=== PATIENT | male | born 1950 | race Caucasian/White ===

== ENCOUNTER → 2023-05-31 18:58 | Outpatient (REF) | payer OTHER, SELFPAY | LOC: MRI 3T 18:58 | PROVIDERS: ATTENDING PHYSICIAN Surgery | DX: R97.20 Elevated prostate specific antigen [PSA] (principal) | CPT/HCPCS: 72197; A9575 ==

== ENCOUNTER → 2023-06-08 07:33 | Outpatient (REF) | payer OTHER, SELFPAY | LOC: HWRAD 07:33 | PROVIDERS: ATTENDING PHYSICIAN Nurse Practitioner Family | DX: M54.2 Cervicalgia (principal) | CPT/HCPCS: 72050 ==

== ENCOUNTER 2023-09-24 20:27 | Inpatient (IN) | payer OTHER, SELFPAY ==
[2023-09-24] VITALS (7 sets, daily range): BP systolic 86–138; BP diastolic 49–85; PULSE 74–106; BMI 25.8
[2023-09-24] MEDS: NSS 1000 IV (15:14)
[2023-09-24 15:30] LABS: % Basophils 0.5 % (0-2); % Eosinophils 0.9 % (0-6); % Immature Granulocytes 0.5 % (0-0.5); % Lymphocytes 15.7 % (20.5-51.1); % Monocytes 14.5 % (1.7-9.3); % Neutrophils 67.9 % (42.2-75.2); Absolute Basophils 0.1 10^3/uL (0-0.2); Absolute Eosinophils 0.1 10^3/uL (0-0.7); Absolute Immature Granulocytes 0.1 10^3/uL (0-0.05); Absolute Lymphocytes 1.7 10^3/uL (1.2-3.4); Absolute Monocytes 1.6 10^3/uL (0.1-0.6); Absolute Neutrophils 7.5 10^3/uL (1.4-6.5); Hematocrit 40.7 % (39.0-52.0); Hemoglobin 14.6 g/dL (13.0-18.0); Mean Corp Hgb Conc. 35.9 g/dL (33.0-37.0); Mean Corpuscular Hgb 31.7 pg (27.0-31.0); Mean Corpuscular Volume 88.3 fL (80.0-94.0); Mean Platelet Volume 10.1 fL (7.4-10.4); Nucleated Red Blood Cells % 0 % (-); Platelet Count 230 10^3/uL (130-400); Red Blood Cell Count 4.61 10^6/uL (4.70-6.10); Red Cell Dist. Width 12.2 % (11.5-14.5)
[2023-09-24 15:41] LABS: Lactic Acid 1.2 mmol/L (0.7-2.0)
[2023-09-24 15:42] LABS: ALT (SGPT) 26 U/L (0-50); AST (SGOT) 33 U/L (17-59); Albumin 3.9 g/dl (3.5-5.0); Alkaline Phosphatase 49 U/L (38-126); Blood Urea Nitrogen 25 mg/dl (9-20); Calcium 9.1 mg/dl (8.4-10.2); Carbon Dioxide 26 mmol/L (22-30); Chloride 99 mmol/L (98-107); Glucose 89 mg/dl (70-99); Potassium 4.4 mmol/L (3.5-5.1); Sodium 136 mmol/L (135-145); Total Bilirubin 0.8 mg/dl (0.2-1.3); Total Protein 6.3 g/dl (6.3-8.2); eGFR 58.37
[2023-09-24 17:14] LABS: Urine Albumin 2+ (Neg - Trace); Urine Bilirubin 1+ (Negative); Urine Character Very Cloudy (Clear); Urine Color Amber; Urine Glucose Negative (Negative); Urine Ketone Trace (Negative); Urine Leukocyte 2+ (Negative); Urine Nitrite Positive (Negative); Urine Occult Blood 4+ (Negative); Urine Urobilinogen 1+ (Neg - 1+); Urine pH 6.5 (5.0-9.0)
[2023-09-24 17:35] LABS: Urine Squamous Cell 0-2 /LPF (Few)
[2023-09-24 17:36] LABS: Urine Bacteria Few (Negative); Urine Red Blood Cell 90-100 /HPF (0-2)
--- NOTE | 2023-09-24 19:13 | ED.GENMED ---
History of Present Illness
General
Chief Complaint: Blood Pressure Problem
Source: patient
Exam Limitations: none
Time Seen by Provider: 09/24/23 14:23
Nursing documentation reviewed up to this point in time: agreed with
Travel History
Have you had any contact with someone who has COVID-19?: No
Do you have any symptoms of coronavirus? Fever > 100 degrees, chills, cough, shortness of breath, sore throat, loss of taste or smell, muscle aches, or headache?: No
History of Present Illness
History of Present Illness:
Patient status post prostate ablation procedure at [facility] 5 days ago, discharged home yesterday secondary to postprocedural complication, i.e. confusion, presents to ED secondary to sudden onset of dizziness and weakness, shortly
after waking up this morning. When his blood pressure was checked by his , his systolic blood pressure was in 70s. Spoke with on-call urologist, who recommended patient come to ED for an evaluation. Patient denies fever or chills. Denies
nausea or vomiting. Denies diarrhea. Denies coughing. Denies headache. Denies rash. Patient has an indwelling Goldberg catheter from last week's procedure.
Past History
Past History
ED Past Medical History: HTN
ED Past Surgical History: Other (Hernia repair)
Social History
Tobacco: Non-smoker
Alcohol: None
Drug: None
Review of Systems
Review of Systems
Allergies reviewed?: Yes
All Other Systems: ROS reviewed and negative except as documented in HPI and ROS
Constitutional: Reports no symptoms
EENT: Reports no symptoms
Respiratory: Reports no symptoms
Cardiac: Reports no symptoms
ABD/GI: Reports no symptoms
: Reports no symptoms
Musculoskeletal: Reports no symptoms
Skin: Reports no symptoms
Neurological: Reports dizzy and weakness
Phy Exam
Physical Exam
Physical Exam:
Physical Exam
General: mild distress, not acutely ill. afebrile. hypotensive
Head: nc/at. eomi
Neck: supple. no meningeal signs.
Heart: s1/s2 regular rate and rhythm, no murmur. equal radial pulses.
Lungs: no acute respiratory distress. clear bilaterally
Abdomen: normal bowel sounds. not tender.
Neuro: alert and oriented. no focal neurological deficits
Skin: no rash
Psychiatric: well kept. interactive and cooperative
Extremities: no edema. no calf tenderness.
Course
Orders/Labs/Results
Orders:
Orders
09/24/23 Breakfast
Cholesterol Lowering
At Your Request: Full Participation
Cholesterol Lowering: Sodium, 2 Gram
09/24/23 14:48
0.9% Sodium Chloride 1000 ml [Nss] 1,000 ml IV BOLUS
09/24/23 15:07
Complete Blood Count/With Diff Urgent
Comprehensive Metabolic Panel Urgent
Lactic Acid Q4H
Comment: CANCEL 2nd LACTIC ACID IF 1st LACTIC ACID IS LESS THAN 2
Magnesium Urgent
Blood Culture Q30M
HUSSEIN Source: Blood/Venous
Specimen Description:
Blood Culture Q30M
HUSSEIN Source: Blood/Venous
Specimen Description:
09/24/23 16:57
Urinalysis Reflex To Culture Urgent
Date Specimen was Collected: 09/24/23
Time Specimen was Collected: 14:53
Urine Microscopic Reflex Cult Urgent
Urine Culture Urgent
HUSSEIN Source: U
Specimen Description:
Date Specimen was Collected: 09/24/23
Time Specimen was Collected: 14:53
09/24/23 19:20
CefTRIAXone [Rocephin] 1,000 mg IV NOW STA
09/24/23 20:00
0.9% Sodium Chloride 500 ml [Nss] 500 ml IV 100 mls/hr
09/24/23 20:01
Admit/Transfer Patient As Directed
Co-Sign Provider:
Level of Care: Inpatient admission
Assign to:: Telemetry
Physician / Group: [email or web address]
Diagnosis: sepsis, complicated UTI,POD 4/5 post prostate ablation
Reason for Telemetry: Other
Other Reason for Telemetry: sepsis, complicated UTI,POD 4/5 post prostate ablation
Date to Stop Telemetry: 09/26/23
Time to Stop Telemetry: 11:00
Reason for Hospitalization: sepsis, complicated UTI,POD 4/5 post prostate ablation
Expected length of stay greater than two midnights?: Yes
ELOS- Estimated Length of Stay in days: 3
I certify the patient meets the requirements for IP care: Yes
09/24/23 20:02
Code Status As Directed
Resuscitation Status: Full Code
09/24/23 20:06
Lactate Level [Lactic Acid] Routine
09/24/23 22:00
Lactated Ringers [Lr] 1,000 ml IV 100 mls/hr
Latanoprost [Xalatan Ophthalmic Solution] 1 drop BOTH EYES HS
09/24/23 22:00
Activity As Directed
Activity Level: With Assistance
Intake/ Output As Directed
Frequency: Per unit guidelines
Pneumatic Compression Sleeves As Directed
Type: Knee high
Vital Signs As Directed
Frequency: Per unit guidelines
DX Deep Vein Thrombosis Video Routine
09/25/23 06:35
Complete Blood Count/No Diff IN AM
Comprehensive Metabolic Panel IN AM
09/25/23 08:00
Docusate Sodium [Colace] 100 mg PO BID
Rosuvastatin Calcium [Crestor] 10 mg PO DAILY
Venlafaxine Extended Release [Effexor Xr] 150 mg PO DAILY
09/25/23 20:00
CefTRIAXone [Rocephin] 1,000 mg IV Q24H
09/26/23 11:00
DC Protocol for Telemetry ONCE
Abnormal Lab Results
09/24/23 09/24/23 09/24/23
15:07 16:57 20:06
WBC 11.0 H 10^3/uL
(4.8-10.8)
RBC 4.61 L 10^6/uL
(4.70-6.10)
MCH 31.7 H pg
(27.0-31.0)
Abs Immat Gran (auto) 0.1 H 10^3/uL
(0-0.05)
Absolute Neuts (auto) 7.5 H 10^3/uL
(1.4-6.5)
Absolute Monos (auto) 1.6 H 10^3/uL
(0.1-0.6)
Lymphocytes % 15.7 L %
(20.5-51.1)
Monocytes % 14.5 H %
(1.7-9.3)
BUN 25 H mg/dl
(9-20)
Lactic Acid 0.6 L mmol/L
(0.7-2.0)
Urine Ketones Trace A
(Negative)
Ur Occult Blood Reflex 4+ A
(Negative)
Urine Nitrite (Reflex) Positive A
(Negative)
Urine Bilirubin 1+ A
(Negative)
Leukocyte Esterase Rfl 2+ A
(Negative)
Urine RBC 90-100 A /HPF
(0-2)
Urine WBC (Reflex) 11-15 A /HPF
(0-5)
Urine Bacteria (Reflex) Few A
(Negative)
Urine Albumin (Reflex) 2+ A
(Neg - Trace)
09/24/23 15:07
09/24/23 15:07
Vital Signs
Initial and Last Documented VS:
Initial Vital Signs
Temp Pulse Resp BP Pulse Ox
97.7 F 102 18 86/49 95
09/24/23 13:41 09/24/23 13:41 09/24/23 13:41 09/24/23 13:41 09/24/23 13:41
Last Documented Vital Signs
Temp Pulse Resp BP Pulse Ox
98.5 F 94 14 144/79 97
09/25/23 19:59 09/25/23 19:59 09/25/23 19:59 09/25/23 19:59 09/25/23 19:59
MDM/Problems Addressed
MDM/Problems Addressed:
Patient with profound hypotension, requiring multiple IV fluid boluses in ED. Unfortunately, when standing up after hydration, patient once again became hypotensive. History and exam concerning for severe dehydration versus sepsis/bacteremia from
recent procedure. Urinalysis noted -will start empiric antibiotics.
Urine culture and blood culture pending.
*Critical Care Note
Total Time (30-74mins, 75-104mins- exclusive of procedures): Not Applicable
ED Attending Note
-
Portions of this chart may have been created with voice recognition software.� Occasional wrong word or��sound alike� substitutions may have occurred due to the inherent limitations of voice recognition software.
Discharge Plan
Departure
Patient Disposition: Admit
Date of Disposition: 09/24/23
Time of Disposition: 19:17
Admit to: Telemetry
Presentation/result/management discussed w/ accepting MD/DO: Hospitalist
Discharge Problem:
Hypotension, Acute UTI
Interventions
Interventions:
*Risk Screen - Suicide Last Done: 09/24/23 13:45
*General Assessment Last Done: 09/24/23 13:45
*Neglect/Abuse Screening Last Done: 09/24/23 13:45
ED- Fall Risk Assessment Last Done: 09/24/23 18:55
*ED COVID-19 Vaccine History Last Done: 09/24/23 18:55
*Nursing Disposition Last Done: 09/24/23 22:00
ED- Cardiac Assessment Last Done: 09/24/23 18:55
ED- Neurological Assessment Last Done: 09/24/23 18:55
ED- Pulmonary Assessment Last Done: 09/24/23 18:55
Discharge Date and Time
Discharge Date/Time: 09/24/23 22:00
--- NOTE | 2023-09-24 19:55 | HPS.HSE ---
Family Physician
-
Family Physician: DAVON Mckinnon
Chief Complaint
-
dizziness and weakness
History of Present Illness
72M HX HTN, POD 4/5 post prostate ablation procedure at [facility] , DC'd home yesterday seen at ER for evalaution of dizziness and weakness
Current dizziness and weakness
-abrupt onset since when he woke up this morming
- associate with weakness
- checked BP and noted SBP 70s
- P Urologist suggest to eval at ER
- wearing indwelling Goldberg catheter since the procedure
- BP was 85/50at ER - 110/65 s/p NS 500 cc bolus
- IV CFTX per ER for sepsis
ROS
Denies diarrhea. Denies coughing. Denies headache. Denies rash
Medical History
Past Medical History
Past Medical History: Reports HTN, Hypercholesterolemia and Psychiatric
Past Surgical History: Reports Urological (POD 4/5 post prostate ablation procedure at [facility])
Social History
Tobacco: Non-smoker
Alcohol: None
Drug: None
Family History
Family History: Not pertinent
Allergies / Home Medications
Allergies reflects when Allergies were last updated in [employer].
Home Medications with original date entered in [employer]
Allergy/Medication List:
Allergies
Allergy/AdvReac Type Severity Reaction Status Date / Time
No Known Allergies Allergy Verified 09/24/23 13:41
Pending Rx reconciliation
Review of Systems
-
Constitutional: Reports Fatigue
EENT: Reports No Symptoms
Respiratory: Reports No Symptoms
Cardiac: Reports No Symptoms
Abdomen/GI: Reports No Symptoms
: Reports No Symptoms
Musculoskeletal: Reports No Symptoms
Skin: Reports No Symptoms
Neurological: Reports Dizzy and Weakness
Endocrine: Reports No Symptoms
Hematologic/Lymphatic: Reports No Symptoms
Psych: Reports No Symptoms
Physical Exam
Vital Signs
Vital Signs
Temp Pulse Resp BP Pulse Ox
97.7 F 102 18 109/66 95
09/24/23 13:41 09/24/23 13:41 09/24/23 13:41 09/24/23 18:58 09/24/23 13:41
Physical Exam
General: Well Nourished, No Apparent Distress and Comfortable
HEENT: NormoCephalic
Respiratory: Clear; No Wheezes, Rales or Rhonchi
Cardiac: S1/S2, Tachycardia and Other (hypotension)
GI: Soft, Non Tender, Non Distended and Normal Bowel Sounds
Genito-urinary: Goldberg
Skin: Warm and Dry
Neuro: AO x 3
Psych: Calm
Laboratory Results
-
09/24/23 15:07
09/24/23 15:07
Laboratory Results
Lactic Acid Cancelled 09/24/23 19:00
Total Bilirubin 0.8 mg/dl (0.2-1.3) 09/24/23 15:07
AST 33 U/L (17-59) 09/24/23 15:07
ALT 26 U/L (0-50) 09/24/23 15:07
Alkaline Phosphatase 49 U/L (38-126) 09/24/23 15:07
Data Reviewed
-
Lab Data: Labs Reviewed by me
Old Records: Reviewed
Impression/Plan
-
Reviewed VS: afebrile 85/50 --> 110/65 tachycardia 100
Data
WCC 11
hgb 14.6
Cr 1.3 - bl is 1.0
eGFR 58 suspect CKD2
UA: POS Nitrites , RBC 90-100, WCC 11-15, 2 +LE
UCx sent
BCx sent
NO PRIOR hospitalist admission:
ASSESSMENT & PLAN
Pending Rx reconciliation
Sepsis due to presumed UTI , presumed complicated
Asso. hypotension and presyncopal postural lightheadedness
- check LA
- Switch to LR IV
- cont. IV CFTX
- held Lisinopril/HCTZ
- f/u UCx, BCx
POD 4/5 post prostate ablation procedure at [facility]
- cont indwelling F cath
Mild PAUL
Hypotension
HX essential HTN on ACEI/HCTZ
- Held Lisinopril/HCTZ
- Trend Cr and BP
HLD
-On Rosuvastatin ?
Depression
- stable
- on Lexapro ?
DVT Px: SCD
Code: Fc
IP TLM
[2023-09-24] MEDS: NSS 500 IV (20:13)
[2023-09-24] MEDS: ROCEPHIN 1000 MG IV (20:17)
[2023-09-24 20:45] LABS: Lactic Acid 0.6 mmol/L (0.7-2.0)
[2023-09-24] MEDS: XALATAN OPHTHALMIC SOLUTION 1 DROP BOTH EYES (22:30)
--- NOTE | 2023-09-24 22:30 | TRANSFER ---
Received pt from ED via stretcher. Stretcher placed next to bed, pt able to stand and pivot into bed. AAOx2-3, unable to state president. Forgetful, bed alarm placed. at bedside. Assessed and oriented to room. Indwelling doan catheter present,
urine brown/red. Pt stated, 'It has looked like that since it has been placed'. manager monitoring placed. Pt verbalized understanding of call kaur. Call kaur within close reach. Will continue to monitor.
[2023-09-24] MEDS: LR 1000 IV (23:29)
[2023-09-25] VITALS (9 sets, daily range): BP systolic 94–153; BP diastolic 63–90; PULSE 91; O2SAT 98
--- NOTE | 2023-09-25 06:06 | W.PN.HOSP.TC ---
Today's Communication/Plan
-
cont abx
follow cultures
PT/OT
Urology Eval
Assessment / Plan
Assessment / Plan
Physical Exam
General: Well Nourished, No Apparent Distress and Comfortable
HEENT: NormoCephalic
Respiratory: Clear; No Wheezes, Rales or Rhonchi
Cardiac: S1/S2 no murmurs rubs crackles
GI: Soft, Non Tender, Non Distended and Normal Bowel Sounds
Genito-urinary: Goldberg, no CVA/flank tenderness
Skin: Warm and Dry
Neuro: AO x 3 though some confusion noted
Psych: Calm
Sepsis due to presumed UTI , presumed complicated
Asso. hypotension and presyncopal postural lightheadedness
- lactic acid wnl
- LR IV support
- cont. IV CFTX
- held Lisinopril/HCTZ
- f/u UCx, BCx
Acute Metabolic Encephalopathy
-mild confusion noted
-will cont to monitor
POD 4/5 post prostate ablation procedure at [facility]
- cont indwelling F cath
-Urology eval appreciated
Mild PAUL
Hypotension
HX essential HTN on ACEI/HCTZ
- Hold Lisinopril/HCTZ
- Trend Cr and BP
-IVF support as above
HLD
-cont Rosuvastatin
Depression
- cont Venlafaxine
DVT Px: SCD
Code: Fc
IP TLM
PT/OT appreciated home health
Discussed with patient and his
I spent a total of 50 minutes with the patient or on the floor. More than 50% of this time involved counseling and coordination of care.
Anticipated Discharge: 24 - 48 hours
Subjective/Interval History
-
Date of Service: September 25, 2023
Seen and examined at bedside in no acute distress sitting up comfortably in bed. mild confusion noted (confused this facility with [facility] and reported going home yesterday with a walker when it was approx 5 days ago when patient was discharged
from [facility] per ). Reports ongoing dysuria. Denies current dizziness but has significant concerns for return of dizziness when standing/ambulating.
Objective Data
-
Labs:
Laboratory Results
09/25/23
06:00
WBC Pending
Hgb Pending
Hct Pending
Plt Count Pending
Sodium Pending
Potassium Pending
Chloride Pending
Carbon Dioxide Pending
BUN Pending
Creatinine Pending
Glucose Pending
Calcium Pending
Total Bilirubin Pending
AST Pending
ALT Pending
Alkaline Phosphatase Pending
Vital Signs:
Vital Signs
Temp Pulse Resp BP Pulse Ox
97.1 F 89 16 128/74 96
09/25/23 03:10 09/25/23 03:10 09/25/23 03:10 09/25/23 03:10 09/25/23 03:10
I&O
09/23/23 09/24/23 09/25/23
06:59 06:59 06:59
Intake Total 900 / 900
Output Total 900 / 900
Balance 0 / 0
[2023-09-25 06:54] LABS: Hematocrit 37.6 % (39.0-52.0); Hemoglobin 13.7 g/dL (13.0-18.0); Mean Corp Hgb Conc. 36.4 g/dL (33.0-37.0); Mean Corpuscular Hgb 32.2 pg (27.0-31.0); Mean Corpuscular Volume 88.3 fL (80.0-94.0); Mean Platelet Volume 9.9 fL (7.4-10.4); Platelet Count 189 10^3/uL (130-400); Red Blood Cell Count 4.26 10^6/uL (4.70-6.10); Red Cell Dist. Width 11.9 % (11.5-14.5); White Blood Cell Count 7.7 10^3/uL (4.8-10.8)
[2023-09-25] MEDS: COLACE 100 MG PO ×2 (07:18→20:29)
[2023-09-25] MEDS: EFFEXOR XR 150 MG PO (07:18)
[2023-09-25] MEDS: CRESTOR 10 MG PO (07:18)
[2023-09-25 07:24] LABS: ALT (SGPT) 24 U/L (0-50); AST (SGOT) 26 U/L (17-59); Albumin 3.3 g/dl (3.5-5.0); Alkaline Phosphatase 61 U/L (38-126); Blood Urea Nitrogen 18 mg/dl (9-20); Carbon Dioxide 26 mmol/L (22-30); Chloride 104 mmol/L (98-107); Estimated Creatinine Clearance 77 ml/min; Glucose 95 mg/dl (70-99); Potassium 4.3 mmol/L (3.5-5.1); Sodium 136 mmol/L (135-145); Total Bilirubin 0.8 mg/dl (0.2-1.3); Total Protein 5.4 g/dl (6.3-8.2); eGFR > 60.00
[2023-09-25] MEDS: LR 1000 IV ×2 (08:48→18:43)
--- NOTE | 2023-09-25 10:31 | CONS.URO ---
Consultation
-
Date/Time Consultation Performed: 09/25/2023 1145
Performing Provider: Jaron
Medical History
History of Present Illness
72 yo male status post prostate 'aqua-ablation' procedure by [facility] ~ 5 days ago, discharged home yesterday after postprocedural complication [confusion]; was NOT on antibiotics at discharge. He experienced
dizziness and weakness, shortly after waking up this morning; his blood pressure was checked by his -- systolic blood pressure was in 70s. poke with on-call PCP, who recommended patient be brought to ED for an evaluation.
Now admitted to hospitalists' service with 'urosepsis'
Past Medical History
Past Medical History: HTN and Other (ROSE)
Past Surgical History: Urological (Aqua-ABLATIOn by Tabitha Da Silva DO at [facility] on 09/19/2023)
Social History
Personal:
Living: With Family
Family History
Family History: Reviewed & Not Pertinent
Allergies/Home Medications
Allergies
Allergy/AdvReac Type Severity Reaction Status Date / Time
No Known Allergies Allergy Verified 09/24/23 13:41
Home Medications
�Medication �Instructions �Recorded �Confirmed �Type
alfuzosin 10 mg tablet,extended 10 mg PO DAILY Urinary Issue 09/24/23 09/24/23 History
release 24 hr
docusate sodium 100 mg capsule 100 mg PO BID Constipation 09/24/23 09/24/23 History
latanoprost 0.005 % eye drops 1 drp BOTH EYES HS Eye Condition 09/24/23 09/24/23 History
lisinopril 10 1 tab PO DAILY Blood Pressure 09/24/23 09/24/23 History
mg-hydrochlorothiazide 12.5 mg
tablet
omeprazole 40 mg capsule,delayed 40 mg PO DAILY Gastrointestinal 09/24/23 09/24/23 History
release Issue
rosuvastatin 10 mg tablet 10 mg PO DAILY High Cholesterol 09/24/23 09/24/23 History
venlafaxine 150 mg tablet,extended 150 mg PO DAILY Depression 09/24/23 09/24/23 History
release 24 hr
Physical Exam
Vital Signs
Vital Signs
Temp Pulse Resp BP Pulse Ox
98.1 F 86 16 131/78 96
09/25/23 07:26 09/25/23 07:26 09/25/23 07:26 09/25/23 07:26 09/25/23 07:26
Lab / Testing Results
Laboratory Results
09/25/23 06:35
09/25/23 06:35
Physical Exam
adult male who is awake an conversant but who appears frail, weak and somewhat confused
Genito-urinary: Goldberg Catheter (katherine urine)
Assessment / Plan
-
AMS of uncertain etiology s/p prostate aqua-ablation
I d/w via phone that records from [facility] and Dr Da Silva are essential to understand what has happened since surgery to determine ongoing pathology
Rec: keep Goldberg
Data Reviewed
-
MRI: Image personally visualized and interpreted (pelvic MRI from 05/2023: 89 cc prostate; PI-RADS 1)
Lab Data: Labs Reviewed
--- NOTE | 2023-09-25 13:32 | CM ---
Reviewed chart, placed a call to patient's who answered and stated that she could talk. Patient's stated that patient lives with her in a single, two story home with three steps to enter. He was recently at [facility] for a prostate
ablation and went home. 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
drive. Patient's stated that this past week, she has been assisting with the bathing and dressing. She got patient a shower chair and he got a walker from the hospital and his purchased a cane for him to use in the powder room.
Patient's stated that patient is normally forgetful, but not as confused as he has been this past week.
Patient has a prescription plan and uses the [facility] in [place] for all of his medications.
His PCP is, Kilo Barrios.
Patient's is unable to determine whether she will be able to take patient home and care for him. She was advised that medical staff will make indications for discharge and CM will help her to navigate the best plan.
Plan: Case management will continue to follow and assist with discharge planning. SNF vrs Home with VN.
[2023-09-25] MEDS: FLUSH (NSS) 1 FLUSH IV ×2 (20:29)
[2023-09-25] MEDS: XALATAN OPHTHALMIC SOLUTION 1 DROP BOTH EYES (20:30)
[2023-09-25] MEDS: STERILE WATER FOR INJECTION 10 ML IV (20:30)
[2023-09-25] MEDS: ROCEPHIN 1000 MG IV (20:30)
[2023-09-26] VITALS (7 sets, daily range): BP systolic 117–152; BP diastolic 72–96; PULSE 77–107; O2SAT 97
[2023-09-26] MEDS: LR 1000 IV ×2 (05:09→07:40)
[2023-09-26 06:18] LABS: Hematocrit 39.7 % (39.0-52.0); Mean Corp Hgb Conc. 35.3 g/dL (33.0-37.0); Mean Corpuscular Hgb 31.6 pg (27.0-31.0); Mean Corpuscular Volume 89.6 fL (80.0-94.0); Mean Platelet Volume 9.7 fL (7.4-10.4); Platelet Count 211 10^3/uL (130-400); Red Blood Cell Count 4.43 10^6/uL (4.70-6.10); Red Cell Dist. Width 11.8 % (11.5-14.5); White Blood Cell Count 8.2 10^3/uL (4.8-10.8)
[2023-09-26 06:44] LABS: Blood Urea Nitrogen 14 mg/dl (9-20); Calcium 9.1 mg/dl (8.4-10.2); Carbon Dioxide 30 mmol/L (22-30); Chloride 104 mmol/L (98-107); Estimated Creatinine Clearance 77 ml/min; Glucose 97 mg/dl (70-99); Magnesium 1.9 mg/dl (1.6-2.3); Phosphorus 3.2 mg/dl (2.5-4.5); Potassium 4.5 mmol/L (3.5-5.1); Sodium 140 mmol/L (135-145); eGFR > 60.00
[2023-09-26] MEDS: COLACE 100 MG PO ×2 (07:36→21:32)
[2023-09-26] MEDS: EFFEXOR XR 150 MG PO (07:37)
[2023-09-26] MEDS: CRESTOR 10 MG PO (07:37)
--- NOTE | 2023-09-26 07:53 | W.PN.HOSP.TC ---
Today's Communication/Plan
-
resume lisinopril reduced dose
transition IV abx to oral
Possible discharge tomorrow home with home health
Assessment / Plan
Assessment / Plan
Physical Exam
General: Well Nourished, No Apparent Distress and Comfortable
HEENT: NormoCephalic
Respiratory: Clear; No Wheezes, Rales or Rhonchi
Cardiac: S1/S2 no murmurs rubs crackles
GI: Soft, Non Tender, Non Distended and Normal Bowel Sounds
Genito-urinary: Goldberg, no CVA/flank tenderness
Skin: Warm and Dry
Neuro: AO x 3 though some confusion noted
Psych: Calm
Sepsis due to presumed UTI , presumed complicated
Asso. hypotension and presyncopal postural lightheadedness
- lactic acid wnl
- LR IV completed
- IV CFTX transitioned to Keflex
- held Lisinopril/HCTZ, lisinopril resumed reduced dose
- UCx, no growth
- BCx NGTD
Acute Metabolic Encephalopathy
-mild confusion noted
-Appears to be resolving/resolved
Post prostate ablation procedure at [facility]
- cont indwelling F cath
-Urology eval appreciated
Mild PAUL resolved
Hypotension resolved
HX essential HTN on ACEI/HCTZ
- Hold Lisinopril/HCTZ
- Trend Cr and BP
-IVF completed
-lisinopril resumed at reduced dose
HLD
-cont Rosuvastatin
Depression
- cont Venlafaxine
DVT Px: SCD
Code: Fc
IP TLM
PT/OT appreciated home health
Discussed with patient and his
I spent a total of 50 minutes with the patient or on the floor. More than 50% of this time involved counseling and coordination of care.
Anticipated Discharge: Within 24 hours
Subjective/Interval History
-
Date of Service: September 26, 2023
More alert today. Confusion appears resolved. Blood pressure increasing. Denies new acute issues at this time. Overall reports feeling well
Objective Data
-
Labs:
Laboratory Results
09/26/23
06:04
WBC 8.2
Hgb 14.0
Hct 39.7
Plt Count 211
Sodium 140
Potassium 4.5
Chloride 104
Carbon Dioxide 30
BUN 14
Creatinine 0.9
Glucose 97
Calcium 9.1
Vital Signs:
Vital Signs
Temp Pulse Resp BP Pulse Ox
98.5 F 75 17 152/88 99
09/26/23 07:00 09/26/23 07:00 09/26/23 07:00 09/26/23 07:00 09/26/23 07:00
I&O
09/25/23 09/26/23 09/27/23
06:59 06:59 06:59
Intake Total 900 / 900 0 / 1920
Output Total 900 / 900 3625 / 3625
Balance 0 / 0 -1705 / -1705
[2023-09-26] MEDS: KEFLEX 500 MG PO ×2 (10:38→21:32)
[2023-09-26] MEDS: ZESTRIL 5 MG PO (10:52)
--- NOTE | 2023-09-26 15:16 | W.PN.URO.CBU ---
Today's Communication / Plan
-
keep Goldberg
pt to f/u with his urologist, [Tabitha Da Silva, ] for Goldberg management
will sign off
Assessment / Plan
-
no growth on urine cx eliminates urosepsis from diagnostic differential for AMS + HD instability
Diagnosis
-
Date of Service: September 26, 2023
-
Patient Diagnosis:
AMS of uncertain etiology s/p prostate aqua-ablation
Subjective
-
comfortable with Goldberg
Objective
-
Vital Signs
Temp Pulse Resp BP Pulse Ox
98.0 F 94 17 124/72 98
09/26/23 14:37 09/26/23 14:37 09/26/23 14:37 09/26/23 14:37 09/26/23 14:37
Intake and Output
09/25/23 09/26/23 09/27/23
06:59 06:59 06:59
Intake Total 900 / 900 1920 / 1920
Output Total 900 / 900 3625 / 3625
Balance 0 / 0 -1705 / -1705
Intake:
Oral fluids 720 / 720
IV fluids (Total) 900 / 900 1200 / 1200
Output:
Urine, Goldberg 900 / 900 3625 / 3625
Laboratory Results
09/26/23 06:04
09/26/23 06:04
urine: no growth
Physical Exam
-
General - well developed, well nourished, no acute distress
Chest - clear bilaterally
Abdomen - soft, non-tender, positive bowel sounds, no CVAT, no incisional pain or distention
Genitalia - normal
Rectal - normal
Skin - warm & dry with no rash
Neuro - AOx3, no motor deficits
Extremities - no clubbing, no cyanosis, no edema
Incision - clean, dry
Dressing - clean, dry, intact
[2023-09-26] MEDS: XALATAN OPHTHALMIC SOLUTION 1 DROP BOTH EYES (21:32)
[2023-09-27 06:35] LABS: Hematocrit 40.9 % (39.0-52.0); Hemoglobin 14.4 g/dL (13.0-18.0); Mean Corp Hgb Conc. 35.2 g/dL (33.0-37.0); Mean Corpuscular Hgb 31.5 pg (27.0-31.0); Mean Corpuscular Volume 89.5 fL (80.0-94.0); Mean Platelet Volume 9.6 fL (7.4-10.4); Platelet Count 235 10^3/uL (130-400); Red Blood Cell Count 4.57 10^6/uL (4.70-6.10); Red Cell Dist. Width 11.8 % (11.5-14.5); White Blood Cell Count 8.4 10^3/uL (4.8-10.8)
--- NOTE | 2023-09-27 06:42 | W.PN.URO.CBU ---
Today's Communication / Plan
-
keep Goldberg
pt to f/u with his urologist at [facility]
signing off
Assessment / Plan
-
no growth on urine cx eliminates urosepsis from diagnostic differential for AMS + HD instability
Diagnosis
-
Date of Service: September 27, 2023
-
Patient Diagnosis:
AMS of uncertain etiology s/p prostate aqua-ablation
Subjective
-
asleep
Objective
-
Vital Signs
Temp Pulse Resp BP Pulse Ox
98 F 81 17 143/88 97
09/26/23 23:25 09/26/23 23:25 09/26/23 23:25 09/26/23 23:25 09/26/23 23:25
Intake and Output
09/25/23 09/26/23 09/27/23
06:59 06:59 06:59
Intake Total 900 / 900 1920 / 1920 960 / 960
Output Total 900 / 900 3625 / 3625 3650 / 3650
Balance 0 / 0 -1705 / -1705 -2690 / -2690
Intake:
Oral fluids 720 / 720 960 / 960
IV fluids (Total) 900 / 900 1200 / 1200
Output:
Urine, Ogldberg 900 / 900 3625 / 3625 3650 / 3650
Laboratory Results
09/27/23 06:17
Physical Exam
-
General - asleep
Genitalia - katherine urine via Goldberg
[2023-09-27 06:55] LABS: Blood Urea Nitrogen 12 mg/dl (9-20); Calcium 9.3 mg/dl (8.4-10.2); Carbon Dioxide 27 mmol/L (22-30); Chloride 102 mmol/L (98-107); Estimated Creatinine Clearance 77 ml/min; Glucose 99 mg/dl (70-99); Phosphorus 3.2 mg/dl (2.5-4.5); Potassium 4.7 mmol/L (3.5-5.1); Sodium 136 mmol/L (135-145); eGFR > 60.00
[2023-09-27 07:56] VITALS: BP 158/94
[2023-09-27] MEDS: EFFEXOR XR 150 MG PO (08:10)
[2023-09-27] MEDS: COLACE 100 MG PO (08:10)
[2023-09-27] MEDS: CRESTOR 10 MG PO (08:10)
[2023-09-27] MEDS: ZESTRIL 5 MG PO ×2 (08:10→11:19)
[2023-09-27] MEDS: KEFLEX 500 MG PO (08:10)
[2023-09-27 08:51] VITALS: BP 152/94; PULSE 84; O2SAT 98
--- NOTE | 2023-09-27 08:54 | W.PN.HOSP.TC ---
Addendum entered and electronically signed by Meagan Amaya MD 09/28/23 08:25:
sepsis ruled out
Original Note:
Today's Communication/Plan
-
discharge
Assessment / Plan
Assessment / Plan
Physical Exam
General: Well Nourished, No Apparent Distress and Comfortable
HEENT: NormoCephalic
Respiratory: Clear; No Wheezes, Rales or Rhonchi
Cardiac: S1/S2 no murmurs rubs crackles
GI: Soft, Non Tender, Non Distended and Normal Bowel Sounds
Genito-urinary: Goldberg, no CVA/flank tenderness
Skin: Warm and Dry
Neuro: AO x 3 conversant coherent
Psych: Calm
Sepsis due to presumed UTI , presumed complicated
Asso. hypotension and presyncopal postural lightheadedness
- lactic acid wnl
- LR IV completed
- IV CFTX transitioned to Keflex plan for 5 more days following discharge
- held Lisinopril/HCTZ, lisinopril resumed reduced dose
- UCx, no growth
- BCx NGTD
Acute Metabolic Encephalopathy
-mild confusion noted
-Appears to be resolving/resolved
Post prostate ablation procedure at [facility]
- cont indwelling F cath
-Urology eval appreciated
Mild PAUL resolved
Hypotension resolved
HX essential HTN on ACEI/HCTZ
- Hold Lisinopril/HCTZ
- Trend Cr and BP
-IVF completed
-lisinopril resumed at reduced dose since titrated up
HLD
-cont Rosuvastatin
Depression
- cont Venlafaxine
DVT Px: SCD
Code: Fc
IP TLM
PT/OT appreciated home health
Medically stable for discharge home with home services and outpatient follow up recommendations.
Discussed with patient and his
Total Time Preparing Discharge __50 minutes including examination of the patient, summary of the hospital stay, instructions for continuing care to all relevant caregivers; and preparation of discharge records, prescriptions, and referral
forms if necessary.
Anticipated Discharge: Today
Subjective/Interval History
-
Date of Service: September 27, 2023
Seen and examined at bedside in no acute distress sitting up comfortably in bed. Denies new acute issues. Reports overall feeling well. Eager to go home.
Objective Data
-
Labs:
Laboratory Results
09/27/23
06:17
WBC 8.4
Hgb 14.4
Hct 40.9
Plt Count 235
Sodium 136
Potassium 4.7
Chloride 102
Carbon Dioxide 27
BUN 12
Creatinine 0.9
Glucose 99
Calcium 9.3
Vital Signs:
Vital Signs
Temp Pulse Resp BP Pulse Ox
98.1 F 80 16 158/94 97
09/27/23 07:56 09/27/23 08:10 09/27/23 07:56 09/27/23 08:10 09/27/23 07:56
I&O
09/26/23 09/27/23 09/28/23
06:59 06:59 06:59
Intake Total 1920 / 1920 960 / 960
Output Total 3625 / 3625 3650 / 3650
Balance -1705 / -1705 -2690 / -2690
--- NOTE | 2023-09-27 09:29 | PN.CDI ---
CDI
- -
CDI:
Physician Documentation Request
Admit Date: 09/24/23 20:27
Dear Doctor Jose Luis,
Please review the following and provide your response in the progress notes.
Clinical Indicators:
Documentation in the record on 09/25 PN includes the diagnosis of sepsis. The following clinical information was noted in the record:
- 09/25 PN 'Sepsis due to presumed UTI , presumed complicated'
- On admission: WBC 11.0, HR 102
- IV abx Ceftriaxone
- 6.5L IVF
- 09/26 Urology 'no growth on urine cx eliminates urosepsis from diagnostic differential for AMS + HD instability'
Based on the above information and the recognized standard SIRS criteria, please clarify if sepsis is still an accurate diagnosis, and reflective of the patient�s condition, to ensure quality of the medical record.
Please clarify in the Progress Notes:
Sepsis is/was present and is a clinical diagnosis based on (please include this additional support in the medical record)
After study sepsis has been ruled out
Other
Recognized standard criteria for this condition and other associated definitions:
�Bacteremia
-Abnormal laboratory test does not indicate a clinically ill patient
�Sepsis
-Systemic manifestations of infection, with 2 or more SIRS criteria which include:
-Fever > 100.4��F or hypothermia < 96.8��F
-Leukocytosis WBC > 12,000 or leukopenia, WBC < 4,000, or > 10% bands
-Tachycardia- > 90 beats/minute
-Tachypnea- RR > 20 breaths/minute or PaCO2 < 32mmHg
Source: Merck Manual 2013
-Documentation should include the known or suspected organism, and the underlying infection, such as UTI or pneumonia
�Severe Sepsis
-Sepsis with associated acute organ dysfunction, such as renal or respiratory failure
-Documentation should indicate the association between the sepsis and the organ dysfunction
�Septic Shock
-Severe sepsis with associated with circulatory failure, evidenced by hypotension and hypoperfusion
Use of terms such as suspected, likely, concern for, or probable (associated with a specific diagnosis that is being evaluated, monitored, or treated as if it exists) are acceptable and can be coded in the inpatient setting, when documented at the
time of discharge.
Thank you,
Breanna Bowman RN
CDI Specialist
Please use your independent medical judgment in providing your response.
--- NOTE | 2023-09-27 09:53 | CM ---
Reviewed chart, Patient progressing well in PT/OT, indication is for VN services at discharge.
Plan: Case management will continue to follow and assist with discharge planning. Indication at this time is for VN services at discharge.
--- NOTE | 2023-09-27 14:04 | CM ---
Received notification that patient is medically cleared for discharge. Met with patient and his who was at bedside. Patient was offered VN services however he declined. Patient's confirmed that she can manage the scope of patient's needs.
She was advised to call CM dept if he gets home and she changes her mind.
IMM reviewed and is on chart.
Plan: Case management will continue to follow and assist with discharge planning. Home with VN services.
--- NOTE | 2023-09-27 15:32 | W.DCSUMMARY ---
Discharge Summary
Discharge Data
Date of Admission: 09/24/23
Date of Discharge: 09/27/23
-
Pending Results: Yes
Additional Pending Results:
official blood culture results
Discharge Plan
-
Patient Disposition: Home with Home Care
Discharge Diagnosis/Procedures: Acute metabolic Encephalopathy unclear etiology (possibly due to Urinary Tract Infection vs Iatrogenic Hypotension) resolved, History recent prostate ablation with Goldberg placement, Hypertension, Anxiety/Depression
Condition: Fair
Diet: Low Cholesterol and 2 Gram Sodium
Activity: As tolerated and With Walker
Driving Restrictions: Not until seen by your Dr
Bathing Restrictions: None
Blood Work: Please repeat CBC and BMP with primary care provider in 1 week of discharge.
Other Services: VN, PT and OT
Activity Restrictions/Additional Instructions:
Please follow up with your primary care provider in 1 week of discharge and keep your appointment with your urologist.
Keflex has been prescribed for 5 more days suspected urinary tract infection.
Lisinopril has been prescribed to replace combination Lisinopril-hydrochlorothiazide due to concerns possible iatrogenic hypotension.
Please keep daily log of blood pressure at home and follow up with primary care provider for further management hypertension.
Please take medications as prescribed/recommended and follow up with primary care provider and/or other healthcare provider involved in your care for refills and/or further adjustment to your medication regimen as necessary.
Referrals:
Kilo Marrufo CRNP [Family Provider] - in one week
Neal Da Silva DO [Non-Admitting Privileges] - in one week (call to schedule f/u during week after discharge)
Prescriptions:
New
cephalexin 500 mg Capsule
500 mg PO BID 5 Days Qty: 10 0RF
lisinopril 10 mg Tablet
10 mg PO DAILY 30 Days Qty: 30 0RF
Continued
latanoprost 0.005 % Drops
1 drp BOTH EYES HS
omeprazole 40 mg Capsule,Delayed Release(Dr/Ec)
40 mg PO DAILY
docusate sodium 100 mg Capsule
100 mg PO BID
Patient Comments:
09/24/2023, x 10 days.
rosuvastatin 10 mg Tablet
10 mg PO DAILY
alfuzosin 10 mg Tablet Extended Release 24 Hr
10 mg PO DAILY
venlafaxine 150 mg Tablet Extended Release 24hr
150 mg PO DAILY
Discontinued
lisinopril-hydrochlorothiazide 10-12.5 mg Tablet
1 tab PO DAILY
Discharge Date and Time
Print Language: KENYAN
[2023-09-27 15:42] VITALS: BP 150/90
== END 2023-09-27 16:38 | disposition home health service (06) | DRG 314 ==
LOC: 3 WEST ACU 20:27
PROVIDERS: ADMITTING PHYSICIAN Internal Medicine; ATTENDING PHYSICIAN Internal Medicine; CONSULT PHYSICIAN Specialist; EMERGENCY PHYSICIAN Emergency Medicine; FAMILY PHYSICIAN Nurse Practitioner Family
DX: I95.89 Other hypotension (principal); G93.41 Metabolic encephalopathy; N39.0 Urinary tract infection, site not specified; N17.9 Acute kidney failure, unspecified; I10 Essential (primary) hypertension; R42 Dizziness and giddiness; E78.00 Pure hypercholesterolemia, unspecified; F32.A Depression, unspecified; G47.33 Obstructive sleep apnea (adult) (pediatric); F41.9 Anxiety disorder, unspecified
CPT/HCPCS: 70450; 80048; 80053; 81003; 81015; 83605; 83735; 84100; 85025; 85027; 87040; 87086; 96360; 97116; 97163; 97167; 97530; 97535; 99285

== ENCOUNTER → 2024-05-14 14:57 | Outpatient (REF) | payer OTHER, SELFPAY | LOC: MRI 3T 14:57 | PROVIDERS: ATTENDING PHYSICIAN Nurse Practitioner Family; REFERRING PHYSICIAN Psychiatry & Neurology Neurology | DX: R41.3 Other amnesia (principal) | CPT/HCPCS: 70553; A9575 ==

== ENCOUNTER → 2024-06-09 09:53 | Outpatient (REF) | payer OTHER, SELFPAY | LOC: DHSLP 09:53 | PROVIDERS: ATTENDING PHYSICIAN Psychiatry & Neurology Neurology; FAMILY PHYSICIAN Nurse Practitioner Family | DX: G47.61 Periodic limb movement disorder (principal) | CPT/HCPCS: 95810 ==

== ENCOUNTER 2024-10-09 14:18 | Outpatient (RCR) | payer OTHER, SELFPAY | END 2024-10-09 23:59 | disposition home or self-care (01) | LOC: RST 14:18 | PROVIDERS: ATTENDING PHYSICIAN Psychiatry & Neurology Neurology; FAMILY PHYSICIAN Nurse Practitioner Family | DX: R41.3 Other amnesia (principal); R41.9 Unspecified symptoms and signs involving cognitive functions and awareness | CPT/HCPCS: 96125; 97129; 97130 ==

== ENCOUNTER → 2024-11-06 13:00 | Outpatient (REF) | payer OTHER, SELFPAY | LOC: HWRAD 13:00 | PROVIDERS: ATTENDING PHYSICIAN Internal Medicine | DX: R10.31 Right lower quadrant pain (principal) | CPT/HCPCS: 76882 ==

== ENCOUNTER 2024-11-06 15:30 | Outpatient (RCR) | payer OTHER, SELFPAY | END 2024-11-06 23:59 | disposition home or self-care (01) | LOC: RST 15:30 | PROVIDERS: ATTENDING PHYSICIAN Psychiatry & Neurology Neurology; FAMILY PHYSICIAN Nurse Practitioner Family | DX: R41.3 Other amnesia (principal); R41.9 Unspecified symptoms and signs involving cognitive functions and awareness | CPT/HCPCS: 97129; 97130 ==

== ENCOUNTER 2025-02-20 06:20 | Day surgery (SDC) | payer OTHER, SELFPAY ==
[2025-02-20 07:00] VITALS: BP 145/96; BMI 25.1
[2025-02-20 07:15] VITALS: BMI 25.1
[2025-02-20 08:05] VITALS: BP 118/77
[2025-02-20 08:15] VITALS: BP 114/79
[2025-02-20 08:27] VITALS: BP 120/86
== END 2025-02-20 08:50 | disposition home or self-care (01) ==
LOC: SDS 06:20
PROVIDERS: ATTENDING PHYSICIAN Internal Medicine
DX: Z12.11 Encounter for screening for malignant neoplasm of colon (principal); D12.2 Benign neoplasm of ascending colon; N40.0 Benign prostatic hyperplasia without lower urinary tract symptoms; Z86.0101 Personal history of adenomatous and serrated colon polyps
CPT/HCPCS: 45385; 88305

== ENCOUNTER 2025-03-11 09:36 | Outpatient (RCR) | payer OTHER, SELFPAY | END 2025-03-11 23:59 | disposition home or self-care (01) | LOC: RPT 09:36 | PROVIDERS: ATTENDING PHYSICIAN Nurse Practitioner Adult Health; FAMILY PHYSICIAN Nurse Practitioner Family | DX: G20.A1 Parkinson's disease without dyskinesia, without mention of fluctuations (principal); Z73.6 Limitation of activities due to disability; R26.89 Other abnormalities of gait and mobility | CPT/HCPCS: 97110; 97112; 97163; 97167; 97530; 97535 ==

== ENCOUNTER 2025-04-13 11:51 | Outpatient (RCR) | payer OTHER, SELFPAY | END 2025-04-13 23:59 | disposition home or self-care (01) | LOC: RPT 11:51 | PROVIDERS: ATTENDING PHYSICIAN Nurse Practitioner Adult Health; FAMILY PHYSICIAN Nurse Practitioner Family | DX: G20.A1 Parkinson's disease without dyskinesia, without mention of fluctuations (principal); Z73.6 Limitation of activities due to disability; R26.89 Other abnormalities of gait and mobility; R13.10 Dysphagia, unspecified | CPT/HCPCS: 92526; 97110; 97112; 97140; 97530; 97535 ==